=== PATIENT | female | born 1980 | race Caucasian/White ===

== ENCOUNTER 2019-01-16 18:15 | Emergency (ER) | payer OTHER, MEDICAID | END 2019-01-16 19:02 | disposition home or self-care (01) | LOC: E/R 19:02 | DX: S33.5XXA Sprain of ligaments of lumbar spine, initial encounter (principal); T70.29XA Other effects of high altitude, initial encounter; V49.49XA Driver injured in collision with other motor vehicles in traffic accident, initial encounter | CPT/HCPCS: 99283; Z7502 ==